=== PATIENT | female | born 1990 | race Caucasian/White ===

== ENCOUNTER 2021-07-14 02:25 | Emergency (ER) | payer OTHER ==
[~2021-07-14 02:25] MED LIST: IBUPROFEN800 MG PO; PERCOCET 5-3251 EACH PO; ROBAXIN750 MG PO
[2021-07-14 03:10] LABS: ALBUMIN 2.8 g/dL (3.4-5.0); BILIRUBIN - TOTAL 0.2 mg/dL (0.2-1.0); CREATININE 0.53 mg/dL (0.51-0.95); GLOBULIN (CALCULATION) 3.2 g/dL; POTASSIUM 3.5 mmol/L (3.5-5.1)
[2021-07-14 03:13] LABS: BASOPHIL 0.2 % (0-2); EOSINOPHIL 0.5 % (0-5); HCT 29.1 % (37.0-47.0); HGB 9.7 g/dl (12.5-16.0); LYMPHOCYTE 18.2 % (15-48); MCH 29.3 pg (25.0-31.0); MCHC 33.3 g/dL (32.0-36.0); MCV 87.9 fL (78.0-100.0); MONOCYTE 5.4 % (0-12); MPV 8.8 fL (6.0-9.5); NRBC 0; PLT 241 K/uL (150-400); RBC 3.31 M/uL (4.20-5.40); RDW 13.8 % (11.5-14.0); WBC 13.6 K/uL (4.0-10.5)
[2021-07-14 05:33] LABS: BILIRUBIN NEGATIVE (NEGATIVE); BLOOD NEGATIVE Ery/uL (NEGATIVE); CLARITY CLEAR (CLEAR); COLOR YELLOW (YELLOW); GLUCOSE (U) NORMAL (NORMAL); LEUKOCYTES TRACE Leu/uL (NEGATIVE); NITRITE POSITIVE (NEGATIVE); PROTEIN NEGATIVE (NEGATIVE)
[2021-07-14 05:44] LABS: BACTERIA 4+
[2021-07-14] MEDS ORDERED: FOSFOMYCIN TROME3 GM PO (05:53)
== END 2021-07-14 06:00 | disposition home or self-care (01) ==
LOC: FER 02:25
PROVIDERS: Emergency Medicine
DX: O23.42 Unspecified infection of urinary tract in pregnancy, second trimester (principal); O99.891 Other specified diseases and conditions complicating pregnancy; R10.84 Generalized abdominal pain; Z3A.24 24 weeks gestation of pregnancy
CPT/HCPCS: 36415; 80053; 81001; 83690; 85025; 87076; 87088; 87186; 99284; J7030

== ENCOUNTER 2021-11-16 15:37 | Emergency (ER) | payer OTHER ==
[~2021-11-16] VITALS: Ht 162.6 cm; Wt 86.2 kg
[~2021-11-16 15:37] MED LIST changes: +FOSFOMYCIN TROME3 GM PO
[2021-11-16 17:24] LABS: BILIRUBIN NEGATIVE (NEGATIVE); BLOOD 2+ Ery/uL (NEGATIVE); CLARITY CLEAR (CLEAR); COLOR YELLOW (YELLOW); GLUCOSE (U) NORMAL (NORMAL); LEUKOCYTES NEGATIVE Leu/uL (NEGATIVE); NITRITE NEGATIVE (NEGATIVE); PROTEIN NEGATIVE (NEGATIVE); SPECIFIC GRAVITY >=1.030 (1.001-1.030); UROBILINOGEN 0.2 mg/dL (0.2-1.0); pH 5.5 (5.0-9.0)
[2021-11-16 17:25] LABS: BASOPHIL 0.3 % (0-2); EOSINOPHIL 0.6 % (0-5); HCT 37.9 % (37.0-47.0); HGB 12.7 g/dl (12.5-16.0); MCH 29.4 pg (25.0-31.0); MCHC 33.5 g/dL (32.0-36.0); MCV 87.7 fL (78.0-100.0); MONOCYTE 4.8 % (0-12); MPV 8.6 fL (6.0-9.5); NEUTROPHIL 79.8 % (41-80); NRBC 0; PLT 340 K/uL (150-400); RBC 4.32 M/uL (4.20-5.40); RDW 13.8 % (11.5-14.0); WBC 14.3 K/uL (4.0-10.5)
[2021-11-16 17:28] LABS: BACTERIA TRACE
[2021-11-16 17:58] LABS: ALBUMIN 3.7 g/dL (3.4-5.0); BUN/CREAT RATIO (CALC) 19.3 RATIO; CREATININE 0.83 mg/dL (0.51-0.95); POTASSIUM 4.9 mmol/L (3.5-5.1); TOTAL PROTEIN 7.7 g/dL (6.4-8.2)
[2021-11-16 22:20] LABS: CORONAVIRUS 2019 SARS-COV-2 NEGATIVE (NEGATIVE); INFLUENZA A NAA NEGATIVE (NEGATIVE)
== END 2021-11-16 23:07 | disposition other institution (70) ==
LOC: FER 15:37
PROVIDERS: Emergency Medicine; Nurse Practitioner Family
DX: K80.50 Calculus of bile duct without cholangitis or cholecystitis without obstruction (principal); Z20.822 Contact with and (suspected) exposure to COVID-19; Z88.1 Allergy status to other antibiotic agents; Z88.2 Allergy status to sulfonamides
CPT/HCPCS: 36415; 80053; 81001; 82150; 83690; 85025; J0744; J1885; J7030; Q9967; U0002